=== PATIENT | male | born 1990 | race Caucasian/White ===

== ENCOUNTER 2022-04-07 20:47 | Emergency (ER) | payer BC ==
[~2022-04-07] VITALS: Ht 188 cm; Wt 142.9 kg
[2022-04-07] MEDS ORDERED: LISINOPRIL40 MG PO (21:01)
[2022-04-07] MEDS ORDERED: ATENOLOL25 MG PO (21:01)
[2022-04-07] MEDS ORDERED: HYDROCHLOROTH12.5 MG PO (21:01)
--- NOTE | 2022-04-08 21:52 | EKG ---
[facility] [address] [facility] [place] [address] Signed Normal sinus rhythm Normal ECG No previous ECGs available Confirmed by Vickie Reilly MD () on 04/08/2022 9:52:32 PM Electronically Signed By: VICKIE REILLY MD 04/08/222151 PATIENT NAME: DUNIA HARRISON Electrocardiogram DATE OF : 86 PHYSICIAN: VICKIE REILLY MD REPORT #: [id number] REPORT IS CONFIDENTIAL AND NOT TO BE RELEASED WITHOUT AUTHORIZATION
== END 2022-04-07 22:37 | disposition home or self-care (01) ==
LOC: ED 20:47
DX: R00.2 Palpitations (principal); I10 Essential (primary) hypertension; Z79.899 Other long term (current) drug therapy
CPT/HCPCS: 36415; 80053; 83735; 84484; 85025; 85610; 93005; 93010; 99285-25